=== PATIENT | female | born 2000 | race Caucasian/White ===

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

== ENCOUNTER 2021-05-11 11:10 | Emergency (ER) | payer BC, OTHER ==
[~2021-05-11] VITALS: Ht 160 cm; Wt 112.4 kg
[~2021-05-11 11:10] MED LIST changes: +ESCI10TA16 PO; -ESCI10TA2 PO; -LORA0.5T11 PO; +LORA0.5T5 PO; -OLAN15TA PO; +OLAN15TA13 PO; +OLAN1TAB16 PO; -OLAN5TAB PO; +RANI-397 PO
[2021-05-11] MEDS ORDERED: ERGO500029 (11:21)
[2021-05-11] MEDS ORDERED: LORY1TAB2 (11:21)
[2021-05-11] MEDS ORDERED: LITH300C (11:21)
[2021-05-11] MEDS ORDERED: METF500T13 (11:21)
[2021-05-11] MEDS ORDERED: ONDANSETRON 4MG/2ML VIAL IV ONE (11:50)
[2021-05-11] MEDS ORDERED: NS 1,000 ML IV ONE (11:50)
[2021-05-11] MEDS ORDERED: ONDANSETRON 4 MG ORAL DISINTEGRATING TAB PO ONE (12:30)
[2021-05-11 12:43] LABS: BASO # 0.1 10^3/uL (0.0-0.2); BASO % 0.7 % (0.0-1.0); EOS # 0.4 10^3/uL (0.0-0.5); EOS % 5.5 % (0.0-3.0); HEMATOCRIT 40.1 % (36.0-47.0); HEMOGLOBIN 12.7 g/dl (12.0-15.5); LYMPH # 2.6 10^3/uL (1.5-5.0); LYMPH % 33.4 % (24.0-44.0); MEAN CORPUSCULAR HEMOGLOBIN 27.6 pg (27.0-33.0); MEAN CORPUSCULAR HGB CONC 31.7 g/dl (32.0-36.5); MEAN CORPUSCULAR VOLUME 87.2 fl (80.0-96.0); MONO # 0.5 10^3/uL (0.0-0.8); MONO % 6.1 % (2.0-8.0); NEUTROPHILS # 4.1 10^3/uL (1.5-8.5); NEUTROPHILS % 53.9 % (36.0-66.0); PLATELET COUNT, AUTOMATED 255 10^3/uL (150-450); WHITE BLOOD COUNT 7.7 10^3/uL (4.0-10.0)
[2021-05-11 13:12] LABS: ALBUMIN 3.6 GM/DL (3.2-5.2); ALT/SGPT 29 U/L (12-78); BILIRUBIN,DIRECT 0.1 MG/DL (0.0-0.2); BILIRUBIN,TOTAL 0.4 MG/DL (0.2-1.0); BLOOD UREA NITROGEN 11 MG/DL (7-18); CALCIUM LEVEL 9.3 MG/DL (8.5-10.1); CARBON DIOXIDE LEVEL 21 MEQ/L (21-32); CHLORIDE LEVEL 110 MEQ/L (98-107); CREATININE FOR GFR 0.62 MG/DL (0.55-1.30); GLUCOSE, FASTING 92 MG/DL (70-100); LIPASE 99 U/L (73-393); POTASSIUM SERUM 4.3 MEQ/L (3.5-5.1); SODIUM LEVEL 143 MEQ/L (136-145); TOTAL PROTEIN 6.8 GM/DL (6.4-8.2)
[2021-05-11 13:25] VITALS: BP 130/80
== END 2021-05-11 13:26 | disposition home or self-care (01) ==
LOC: M ED 11:10
DX: R10.84 Generalized abdominal pain (principal); R11.2 Nausea with vomiting, unspecified; R19.7 Diarrhea, unspecified; E11.9 Type 2 diabetes mellitus without complications; K21.9 Gastro-esophageal reflux disease without esophagitis; R56.9 Unspecified convulsions; F43.10 Post-traumatic stress disorder, unspecified; F20.9 Schizophrenia, unspecified; F29 Unspecified psychosis not due to a substance or known physiological condition; F90.9 Attention-deficit hyperactivity disorder, unspecified type; F41.9 Anxiety disorder, unspecified; F31.9 Bipolar disorder, unspecified; F60.3 Borderline personality disorder; Z79.899 Other long term (current) drug therapy
CPT/HCPCS: 80048; 80076; 81001; 83690; 84702; 85025; 87086; 96374; 99283; Q0162

== ENCOUNTER 2022-03-01 13:19 | Emergency (ER) | payer OTHER ==
[~2022-03-01] VITALS: Ht 157.5 cm; Wt 109.1 kg
[~2022-03-01 13:19] MED LIST changes: +ERGO500029; +LITH300C; +LORY1TAB2; +METF500T13 PO
[2022-03-01] MEDS ORDERED: NS 1,000 ML IV SCH (13:45)
[2022-03-01] MEDS ORDERED: ACETAMINOPHEN TAB 650MG DOSE (2X325MG) PO ONE (14:05)
[2022-03-01 14:20] LABS: BASO % 0.4 % (0.0-1.0); EOS % 0.4 % (0.0-3.0); HEMATOCRIT 38.1 % (36.0-47.0); HEMOGLOBIN 12.3 g/dl (12.0-15.5); LYMPH # 0.9 10^3/uL (1.5-5.0); MEAN CORPUSCULAR HEMOGLOBIN 27.5 pg (27.0-33.0); MEAN CORPUSCULAR HGB CONC 32.3 g/dl (32.0-36.5); MONO # 0.6 10^3/uL (0.0-0.8); MONO % 11.2 % (2.0-8.0); NEUTROPHILS # 3.6 10^3/uL (1.5-8.5); NEUTROPHILS % 70.8 % (36.0-66.0); PLATELET COUNT, AUTOMATED 203 10^3/uL (150-450); RED BLOOD COUNT 4.48 10^6/uL (4.00-5.40); WHITE BLOOD COUNT 5.1 10^3/uL (4.0-10.0)
[2022-03-01 14:52] LABS: ALBUMIN 3.5 GM/DL (3.2-5.2); ALT/SGPT 57 U/L (12-78); BILIRUBIN,DIRECT 0.1 MG/DL (0.0-0.2); BILIRUBIN,TOTAL 0.5 MG/DL (0.2-1.0); BLOOD UREA NITROGEN 5 MG/DL (7-18); CALCIUM LEVEL 8.6 MG/DL (8.5-10.1); CARBON DIOXIDE LEVEL 23 MEQ/L (21-32); CHLORIDE LEVEL 109 MEQ/L (98-107); GLOMERULAR FILTRATION RATE > 60.0 (>60); GLUCOSE, FASTING 91 MG/DL (70-100); HCG, SERUM QUANTITATIVE 11749 MIU/ML; LIPASE 56 U/L (73-393); LITHIUM LEVEL < 0.20 MEQ/L (0.60-1.20); MAGNESIUM LEVEL 1.9 MG/DL (1.8-2.4); PHOSPHORUS LEVEL 2.9 MG/DL (2.5-4.9); POTASSIUM SERUM 3.5 MEQ/L (3.5-5.1); SODIUM LEVEL 140 MEQ/L (136-145); TOTAL PROTEIN 6.5 GM/DL (6.4-8.2)
[2022-03-01 16:49] VITALS: BP 142/82
[2022-03-01 17:16] LABS: APPEARANCE, URINE HAZY (CLEAR); BACTERIA, URINE AUTO 3+ (NEGATIVE); BILIRUBIN, URINE AUTO NEGATIVE (NEGATIVE); BLOOD, URINE BLOOD NEGATIVE (NEGATIVE); COLOR, URINE YELLOW (YELLOW); GLUCOSE, URINE (UA) AUTO NEGATIVE (NEGATIVE); KETONE, URINE AUTO 1+ mg/dL (NEGATIVE); LEUKOCYTE ESTERASE, URINE AUTO NEGATIVE (NEGATIVE); MUCUS, URINE SMALL (NEGATIVE); NITRITE, URINE AUTO POSITIVE (NEGATIVE); PROTEIN, URINE AUTO NEGATIVE (NEGATIVE); RBC, URINE AUTO 1 /HPF (0-3); SPECIFIC GRAVITY URINE AUTO 1.023 (1.002-1.035); SQUAMOUS EPITHELIAL CELL UR AU 6 /HPF (0-6); UROBILINOGEN, URINE AUTO 0.2 mg/dL (0.0-2.0); WBC, URINE AUTO 3 /HPF (0-3)
[2022-03-01 17:36] LABS: AMPHETAMINES LEVEL URINE NEGATIVE (NEGATIVE); BARBITURATES URINE NEGATIVE (NEGATIVE); BENZODIAZEPINES URINE NEGATIVE (NEGATIVE); CANNABINOIDS URINE NEGATIVE (NEGATIVE); COCAINE METABOLITE URINE NEGATIVE (NEGATIVE); METHADONE URINE NEGATIVE (NEGATIVE); OPIATES URINE NEGATIVE (NEGATIVE); PHENCYCLIDINE URINE NEGATIVE (NEGATIVE)
[2022-03-01] MEDS ORDERED: CEPH500C PO ×2 (18:40→19:34)
[2022-03-01] MEDS ORDERED: CEPHALEXIN 500 MG CAP PO ONE (18:45)
[2022-03-01] MEDS ORDERED: levETIRAcetam 250MG TABLET (KEPPRA) PO ONE (19:05)
[2022-03-01] MEDS ORDERED: HOME MED LIST COMPLETE! XX SCH (19:15)
[2022-03-01] MEDS ORDERED: KEPP1TAB PO (19:33)
[2022-03-01] MEDS ORDERED: NIRMATRELVIR/RITONAVIR CO-PACK (EMERGENCY USE AUTH) PO SCH ×2 (21:00)
== END 2022-03-01 19:50 | disposition home or self-care (01) ==
LOC: EDBD 13:19 → M ED 13:19
DX: G40.909 Epilepsy, unspecified, not intractable, without status epilepticus (principal); U07.1 COVID-19; N39.0 Urinary tract infection, site not specified; R94.31 Abnormal electrocardiogram [ECG] [EKG]; F43.10 Post-traumatic stress disorder, unspecified; F90.9 Attention-deficit hyperactivity disorder, unspecified type; F32.A Depression, unspecified; F41.8 Other specified anxiety disorders; Z79.899 Other long term (current) drug therapy

== ENCOUNTER 2022-04-18 21:09 | Emergency (ER) | payer OTHER ==
[~2022-04-18] VITALS: Ht 160 cm; Wt 113.6 kg
[~2022-04-18 21:09] MED LIST changes: +CEPH500C PO; +KEPP1TAB PO
[2022-04-19 01:30] VITALS: BP 130/70
== END 2022-04-19 03:10 | disposition left against medical advice (07) ==
LOC: M ED 21:09
DX: Z53.21 Procedure and treatment not carried out due to patient leaving prior to being seen by health care provider (principal)

== ENCOUNTER → 2022-04-20 | Outpatient (CLI) | payer OTHER ==
[2022-04-20 13:52] LABS: BASO % 0.3 % (0.0-1.0); EOS # 0.3 10^3/uL (0.0-0.5); EOS % 3.5 % (0.0-3.0); HEMATOCRIT 38.6 % (36.0-47.0); HEMOGLOBIN 12.3 g/dl (12.0-15.5); LYMPH # 2.4 10^3/uL (1.5-5.0); MEAN CORPUSCULAR HEMOGLOBIN 27.8 pg (27.0-33.0); MEAN CORPUSCULAR HGB CONC 31.9 g/dl (32.0-36.5); MEAN CORPUSCULAR VOLUME 87.3 fl (80.0-96.0); MONO # 0.5 10^3/uL (0.0-0.8); MONO % 5.4 % (2.0-8.0); NEUTROPHILS % 64.4 % (36.0-66.0); PLATELET COUNT, AUTOMATED 247 10^3/uL (150-450); RED BLOOD COUNT 4.42 10^6/uL (4.00-5.40); WHITE BLOOD COUNT 9.3 10^3/uL (4.0-10.0)
[2022-04-20 14:44] LABS: HEPATITIS C VIRUS ABY INDEX 0.1 INDEX (<0.8); HIV 1&2 SCREEN CENTAUR NEGATIVE (NEGATIVE)
[2022-04-20 16:05] LABS: GC DNA AMPLIFICATION NEGATIVE (NEGATIVE)
== END ==
LOC: M PLALAB 03-17 11:04
PROVIDERS: ATTEND Specialist
DX: Z34.01 Encounter for supervision of normal first pregnancy, first trimester (principal); Z3A.00 Weeks of gestation of pregnancy not specified

== ENCOUNTER → 2022-04-20 | Outpatient (CLI) | payer OTHER ==
[2022-04-20 14:11] LABS: HEMOGLOBIN A1c 5.2 %
== END ==
LOC: M PLALAB 11:26
PROVIDERS: ATTEND Advanced Practice Midwife
DX: R73.03 Prediabetes (principal)

== ENCOUNTER → 2022-05-01 | Outpatient (CLI) | payer OTHER | LOC: M PLALAB 11:00 | PROVIDERS: ATTEND Specialist | DX: Z34.82 Encounter for supervision of other normal pregnancy, second trimester (principal) ==

== ENCOUNTER → 2022-05-01 | Outpatient (CLI) | payer OTHER | LOC: M WHC 08:14 | PROVIDERS: ATTEND Specialist | DX: Z34.82 Encounter for supervision of other normal pregnancy, second trimester (principal) ==

== ENCOUNTER → 2022-07-01 | Outpatient (CLI) | payer OTHER | LOC: M WHC 07:32 | PROVIDERS: ATTEND Obstetrics & Gynecology | DX: Z34.92 Encounter for supervision of normal pregnancy, unspecified, second trimester (principal); Z3A.18 18 weeks gestation of pregnancy ==

== ENCOUNTER → 2022-07-01 | Outpatient (CLI) | payer OTHER ==
[2022-07-01 13:32] LABS: HEMATOCRIT 35.7 % (36.0-47.0); HEMOGLOBIN 11.3 g/dl (12.0-15.5); MEAN CORPUSCULAR HEMOGLOBIN 27.2 pg (27.0-33.0); MEAN CORPUSCULAR HGB CONC 31.7 g/dl (32.0-36.5); MEAN CORPUSCULAR VOLUME 85.8 fl (80.0-96.0); PLATELET COUNT, AUTOMATED 237 10^3/uL (150-450); RED BLOOD COUNT 4.16 10^6/uL (4.00-5.40)
== END ==
LOC: M PLALAB 08:41
PROVIDERS: ATTEND Obstetrics & Gynecology
DX: Z34.92 Encounter for supervision of normal pregnancy, unspecified, second trimester (principal); Z3A.23 23 weeks gestation of pregnancy

== ENCOUNTER 2022-07-06 17:25 | Outpatient (CLI) | payer OTHER ==
[~2022-07-06] VITALS: Ht 160 cm; Wt 112.3 kg
[2022-07-06 17:52] VITALS: BP 135/68
[2022-07-06] MEDS ORDERED: STUACAP PO (17:56)
[2022-07-06] MEDS ORDERED: MIDO2.5T PO (17:57)
[2022-07-06] MEDS ORDERED: HOME MED LIST COMPLETE! XX SCH (18:00)
[2022-07-06 18:53] LABS: APPEARANCE, URINE MANUAL HAZY (CLEAR); COLOR, URINE MANUAL YELLOW (YELLOW)
[2022-07-06 18:54] LABS: PROTEIN, URINE MANUAL TRACE mg/dL (NEGATIVE)
[2022-07-06 18:55] LABS: BILIRUBIN, URINE MANUAL NEGATIVE (NEGATIVE); BLOOD URINE MANUAL NEGATIVE (NEGATIVE); GLUCOSE, URINE (UA) MANUAL NEGATIVE (NEGATIVE); KETONE, URINE MANUAL 2+ mg/dL (NEGATIVE); LEUKOCYTE ESTERASE, URINE MAN POSITIVE (NEGATIVE); NITRITE, URINE MANUAL NEGATIVE (NEGATIVE); UROBILINOGEN, URINE MANUAL NORMAL (NORMAL)
[2022-07-06 19:03] LABS: BACTERIA, URINE LARGE AMOUNT; CALCIUM OXALATE CRYSTALS,URINE MOD AMOUNT /hpf; RBC, URINE 0-1 /hpf (0-3); SQUAMOUS EPITHELIAL CELL URINE LARGE AMOUNT /hpf (SMALL AMT); TRANSITIONAL EPI CELLS, URINE SMALL AMOUNT /hpf
[2022-07-06 19:04] LABS: HYALINE CAST, URINE NONE SEEN /lpf (0-1); MUCUS, URINE MOD AMOUNT (NEGATIVE)
[2022-07-06 19:39] LABS: APPEARANCE, URINE MANUAL CLEAR (CLEAR); COLOR, URINE MANUAL LT YELLOW (YELLOW)
[2022-07-06 19:40] LABS: BILIRUBIN, URINE MANUAL NEGATIVE (NEGATIVE); GLUCOSE, URINE (UA) MANUAL NEGATIVE (NEGATIVE); KETONE, URINE MANUAL 2+ mg/dL (NEGATIVE); NITRITE, URINE MANUAL NEGATIVE (NEGATIVE); PROTEIN, URINE MANUAL NEGATIVE (NEGATIVE); UROBILINOGEN, URINE MANUAL NORMAL (NORMAL)
[2022-07-06 19:41] LABS: BLOOD URINE MANUAL NEGATIVE (NEGATIVE); LEUKOCYTE ESTERASE, URINE MAN TRACE (NEGATIVE)
[2022-07-06 19:52] LABS: BACTERIA, URINE LARGE AMOUNT; MUCUS, URINE MOD AMOUNT (NEGATIVE); SQUAMOUS EPITHELIAL CELL URINE LARGE AMOUNT /hpf (SMALL AMT)
[2022-07-06 19:53] LABS: HYALINE CAST, URINE NONE SEEN /lpf (0-1)
== END 2022-07-06 19:25 | disposition home or self-care (01) ==
LOC: M LDO 17:25
PROVIDERS: ATTEND Advanced Practice Midwife
DX: O36.8129 Decreased fetal movements, second trimester, other fetus (principal); O99.212 Obesity complicating pregnancy, second trimester; E66.01 Morbid (severe) obesity due to excess calories; O99.810 Abnormal glucose complicating pregnancy; O99.352 Diseases of the nervous system complicating pregnancy, second trimester; O26.52 Maternal hypotension syndrome, second trimester; O99.342 Other mental disorders complicating pregnancy, second trimester; Z3A.24 24 weeks gestation of pregnancy
CPT/HCPCS: 59025; 81000; 87086; G0463

== ENCOUNTER → 2022-07-28 | Outpatient (CLI) | payer OTHER ==
[~2022-07-28] MED LIST changes: +MIDO2.5T PO; +STUACAP PO
== END ==
LOC: M WHC 10:55
PROVIDERS: ATTEND Advanced Practice Midwife
DX: Z34.82 Encounter for supervision of other normal pregnancy, second trimester (principal)

== ENCOUNTER → 2022-08-21 | Outpatient (CLI) | payer OTHER | LOC: M WHC 12:25 | PROVIDERS: ATTEND Advanced Practice Midwife | DX: Z34.83 Encounter for supervision of other normal pregnancy, third trimester (principal); Z3A.30 30 weeks gestation of pregnancy ==

== ENCOUNTER 2022-08-24 06:25 | Outpatient (CLI) | payer OTHER ==
[~2022-08-24] VITALS: Ht 160 cm; Wt 114.8 kg
[2022-08-24 06:46] VITALS: BP 140/87
[2022-08-24] MEDS ORDERED: KEPP1TAB PO (06:49)
[2022-08-24] MEDS ORDERED: HOME MED LIST COMPLETE! XX SCH (06:50)
== END 2022-08-24 07:30 | disposition home or self-care (01) ==
LOC: M LDO 06:25
PROVIDERS: ATTEND Specialist
DX: O26.893 Other specified pregnancy related conditions, third trimester (principal); N89.8 Other specified noninflammatory disorders of vagina; R25.2 Cramp and spasm; Z3A.31 31 weeks gestation of pregnancy
CPT/HCPCS: 59025; G0463

== ENCOUNTER 2022-09-22 02:44 | Emergency (ER) | payer OTHER ==
[~2022-09-22] VITALS: Ht 160 cm; Wt 113.6 kg
[2022-09-22] MEDS ORDERED: NS 1,000 ML IV ONE (03:00)
[2022-09-22 03:12] LABS: BASO % 0.4 % (0.0-1.0); EOS # 0.3 10^3/uL (0.0-0.5); EOS % 2.8 % (0.0-3.0); HEMATOCRIT 33.3 % (36.0-47.0); HEMOGLOBIN 10.5 g/dl (12.0-15.5); MEAN CORPUSCULAR HEMOGLOBIN 25.7 pg (27.0-33.0); MEAN CORPUSCULAR HGB CONC 31.5 g/dl (32.0-36.5); MEAN CORPUSCULAR VOLUME 81.4 fl (80.0-96.0); MONO # 0.8 10^3/uL (0.0-0.8); MONO % 7.7 % (2.0-8.0); NEUTROPHILS # 6.5 10^3/uL (1.5-8.5); NEUTROPHILS % 60.5 % (36.0-66.0); PLATELET COUNT, AUTOMATED 244 10^3/uL (150-450); RED BLOOD COUNT 4.09 10^6/uL (4.00-5.40); WHITE BLOOD COUNT 10.7 10^3/uL (4.0-10.0)
[2022-09-22 03:45] LABS: BLOOD UREA NITROGEN 9 MG/DL (9-23); CALCIUM LEVEL 8.5 MG/DL (8.5-10.1); CARBON DIOXIDE LEVEL 21 MMOL/L (20-31); CHLORIDE LEVEL 107 MMOL/L (98-107); CPK CREATINE PHOSPHOKINASE 19 U/L (34-145); CREATININE FOR GFR 0.44 MG/DL (0.55-1.30); GLOMERULAR FILTRATION RATE > 60.0 (>60); GLUCOSE, FASTING 113 MG/DL (60-100); MAGNESIUM LEVEL 1.6 MG/DL (1.8-2.4); POTASSIUM SERUM 3.9 MMOL/L (3.5-5.1); SODIUM LEVEL 139 MMOL/L (136-145)
[2022-09-22 04:02] LABS: ALBUMIN 2.8 G/DL (3.2-5.2); ALT/SGPT 16 U/L (7.0-40); BILIRUBIN,DIRECT < 0.1 MG/DL (<0.4); BILIRUBIN,TOTAL 0.3 MG/DL (0.3-1.2); LIPASE 34 U/L (12-53)
[2022-09-22] MEDS ORDERED: MAGNESIUM OXIDE 400MG TAB (MAG-OX) PO ONE (05:45)
[2022-09-22 05:58] LABS: CREATININE,RANDOM URINE 145.2 MG/DL; TOTAL PROTEIN,RANDOM URINE 37.6 MG/DL (0.0-14.0)
[2022-09-22 06:00] VITALS: BP 142/84
== END 2022-09-22 06:43 | disposition home or self-care (01) ==
LOC: EDBD 02:44 → M ED 02:44
DX: O99.353 Diseases of the nervous system complicating pregnancy, third trimester (principal); R56.9 Unspecified convulsions; Z3A.35 35 weeks gestation of pregnancy; Z79.84 Long term (current) use of oral hypoglycemic drugs; Z79.899 Other long term (current) drug therapy; Z86.69 Personal history of other diseases of the nervous system and sense organs

== ENCOUNTER → 2022-09-23 | Outpatient (REF) | payer OTHER | LOC: M PLALAB 10:46 | PROVIDERS: ATTEND Advanced Practice Midwife | DX: O13.3 Gestational [pregnancy-induced] hypertension without significant proteinuria, third trimester (principal) ==

== ENCOUNTER 2022-10-05 10:17 | Inpatient (IN) | payer OTHER ==
[~2022-10-05] VITALS: Ht 160 cm; Wt 115.6 kg
[2022-10-05] VITALS (12 sets, daily range): BP systolic 109–143; BP diastolic 57–89
[2022-10-05] MEDS ORDERED: LACTATED RINGER'S 1000 ML IV STA (11:22)
[2022-10-05] MEDS ORDERED: TRANEXAMIC ACID INJection 1,000 MG in NS 100 ML IV PRN (11:25)
[2022-10-05] MEDS ORDERED: LIDOCAINE 1% MDV 20ML VIAL INFIL PRN (11:25)
[2022-10-05] MEDS ORDERED: CARBOPROST TROMETHAMINE 250 MCG/ML AMP IM PRN (11:25)
[2022-10-05] MEDS ORDERED: OXYTOCIN INJ 10UNITS/ML 1ML VIAL IM PRN (11:25)
[2022-10-05] MEDS ORDERED: OXYTOCIN DRIP 30 UNITS in IV 1 EA IV PRN (11:25)
[2022-10-05 11:49] LABS: HEMOGLOBIN 10.5 g/dl (12.0-15.5); MEAN CORPUSCULAR HEMOGLOBIN 25.9 pg (27.0-33.0); MEAN CORPUSCULAR HGB CONC 31.8 g/dl (32.0-36.5); MEAN CORPUSCULAR VOLUME 81.5 fl (80.0-96.0); PLATELET COUNT, AUTOMATED 244 10^3/uL (150-450); RED BLOOD COUNT 4.05 10^6/uL (4.00-5.40); WHITE BLOOD COUNT 8.9 10^3/uL (4.0-10.0)
[2022-10-05 12:11] LABS: URIC ACID 3.8 MG/DL (3.1-7.8)
[2022-10-05 12:13] LABS: LDH LACTATE DEHYDROGENASE 161 U/L (120-246)
[2022-10-05 12:14] LABS: ALT/SGPT 22 U/L (7.0-40); AST/SGOT 15 U/L (<34); BILIRUBIN,TOTAL 0.3 MG/DL (0.3-1.2); CREATININE FOR GFR 0.49 MG/DL (0.55-1.30); GLOMERULAR FILTRATION RATE > 60.0 (>60)
[2022-10-05] MEDS: miSOPROStol 50MCG 1/2 TABLET PO SCH ×3 (12:39→21:18)
[2022-10-05 13:34] LABS: TOTAL PROTEIN,RANDOM URINE 36.4 MG/DL (0.0-14.0)
[2022-10-05 13:38] LABS: CREATININE,RANDOM URINE 180.8 MG/DL
[2022-10-05] MEDS: levETIRAcetam 250MG TABLET (KEPPRA) PO SCH (21:48)
[2022-10-05] MEDS: metFORMIN (GLUCOPHAGE) 500MG TAB PO SCH (21:51)
[2022-10-06] VITALS (43 sets, daily range): BP systolic 108–153; BP diastolic 55–108
[2022-10-06] MEDS: metFORMIN (GLUCOPHAGE) 500MG TAB PO SCH ×2 (08:27→18:00)
[2022-10-06] MEDS: levETIRAcetam 250MG TABLET (KEPPRA) PO SCH ×2 (09:51→20:34)
[2022-10-06] MEDS ORDERED: OXYTOCIN DRIP 30 UNITS in IV 1 EA IV SCH (11:10)
[2022-10-06] MEDS ORDERED: BUTORPHANOL 2 MG/ML 1ML VIAL IV ONE (11:20)
[2022-10-06] MEDS ORDERED: PROMETHAZINE 25MG/ML 1ML VIAL IV ONE (11:20)
[2022-10-06] MEDS: LR 1,000 ML IV SCH ×2 (17:19→22:45)
[2022-10-06] MEDS ORDERED: ePHEDrine SULFATE 25 MG/5 ML(5MG/ML) SYRINGE IVP PRN (21:35)
[2022-10-06] MEDS ORDERED: ONDANSETRON 4MG 2ML VIAL IV PRN (21:35)
[2022-10-06] MEDS ORDERED: LR 500 ML IV PRN (21:35)
[2022-10-06] MEDS ORDERED: diphenhydrAMINE 50MG/ML VIAL IV PRN (21:35)
[2022-10-06] MEDS ORDERED: EPIDURAL/PCA KEYS XX PRN (21:35)
[2022-10-06] MEDS ORDERED: NALOXONE INJ 0.4MG/1ML VIAL IV PRN (21:35)
[2022-10-06] MEDS: FENTANYL/ROPIVACAINE/NACL BAG 100 ML EPIDURAL SCH (22:18)
[2022-10-07] VITALS (40 sets, daily range): BP systolic 98–157; BP diastolic 51–86
[2022-10-07] MEDS: LR 1,000 ML IV SCH (02:46)
[2022-10-07] MEDS: FENTANYL/ROPIVACAINE/NACL BAG 100 ML EPIDURAL SCH (06:31)
[2022-10-07] MEDS: metFORMIN (GLUCOPHAGE) 500MG TAB PO SCH ×2 (07:56→19:45)
[2022-10-07] MEDS: levETIRAcetam 250MG TABLET (KEPPRA) PO SCH ×2 (08:23→21:13)
[2022-10-07] MEDS ORDERED: DOCUSATE SODIUM 100MG CAPSULE PO PRN (14:15)
[2022-10-07] MEDS ORDERED: DIBUCAINE 1% OINTMENT 30GM TOP PRN (14:15)
[2022-10-07] MEDS ORDERED: ACETAMINOPHEN TAB 650MG DOSE (2X325MG) PO PRN (14:15)
[2022-10-07] MEDS ORDERED: IBUPROFEN 600MG TAB PO PRN (14:15)
[2022-10-07] MEDS ORDERED: RHOGAM 300 MCG (1500 IU) INJ (J2790) IM SCH (14:15)
[2022-10-07] MEDS: ACETAMINOPHEN 500 MG TAB PO PRN ×2 (14:55→22:13)
[2022-10-07] MEDS: IBUPROFEN 800 MG TAB PO PRN (15:34)
[2022-10-08] MEDS: IBUPROFEN 800 MG TAB PO PRN ×2 (03:20→14:48)
[2022-10-08 06:00] VITALS: BP 118/57
[2022-10-08] MEDS: PRENATAL VITAMINS CHEWABLE TABLET PO SCH (07:43)
[2022-10-08] MEDS: metFORMIN (GLUCOPHAGE) 500MG TAB PO SCH ×2 (07:44→18:23)
[2022-10-08] MEDS: levETIRAcetam 250MG TABLET (KEPPRA) PO SCH ×2 (07:44→20:55)
[2022-10-08 18:00] VITALS: BP 115/60
[2022-10-08] MEDS: ACETAMINOPHEN 500 MG TAB PO PRN (20:58)
[2022-10-08 22:20] VITALS: BP 126/78
[2022-10-09] MEDS: IBUPROFEN 800 MG TAB PO PRN (02:04)
[2022-10-09 06:00] VITALS: BP 129/78
[2022-10-09] MEDS: PRENATAL VITAMINS CHEWABLE TABLET PO SCH (08:02)
[2022-10-09] MEDS: metFORMIN (GLUCOPHAGE) 500MG TAB PO SCH (08:02)
[2022-10-09] MEDS: levETIRAcetam 250MG TABLET (KEPPRA) PO SCH (08:02)
[2022-10-09] MEDS ORDERED: MEASLES,MUMPS,RUBELLA VACCINE INJ (MMR-II) (90707) SC.IMMUN ONE (09:00)
[2022-10-09] MEDS ORDERED: INFLUENZA QUADRIVALENT PF VACCINE 0.5ML SYRINGE IM.IMMUN ONE (09:00)
== END 2022-10-09 13:45 | disposition home or self-care (01) | DRG 560 ==
LOC: M LDI 10:17 → M OBS 10-07 16:40
PROVIDERS: ADMIT Advanced Practice Midwife; ATTEND Advanced Practice Midwife
PROC: 3E0P7GC Introduction of Other Therapeutic Substance into Female Reproductive, Via Natural or Artificial Opening (ICD-10-PCS; 2022-10-05)
PROC: 10E0XZZ Delivery of Products of Conception, External Approach (ICD-10-PCS; principal; 2022-10-07)
PROC: 10907ZC Drainage of Amniotic Fluid, Therapeutic from Products of Conception, Via Natural or Artificial Opening (ICD-10-PCS; 2022-10-07)
PROC: 0HQ9XZZ Repair Perineum Skin, External Approach (ICD-10-PCS; 2022-10-07)
DX: O13.4 Gestational [pregnancy-induced] hypertension without significant proteinuria, complicating childbirth (principal); Z3A.37 37 weeks gestation of pregnancy; Z37.0 Single live birth; O24.12 Pre-existing type 2 diabetes mellitus, in childbirth; O99.354 Diseases of the nervous system complicating childbirth; G40.909 Epilepsy, unspecified, not intractable, without status epilepticus; O76 Abnormality in fetal heart rate and rhythm complicating labor and delivery; O69.82X0 Labor and delivery complicated by other cord entanglement, without compression, not applicable or unspecified; O70.0 First degree perineal laceration during delivery; Z79.84 Long term (current) use of oral hypoglycemic drugs

== ENCOUNTER 2022-12-05 23:34 | Emergency (ER) | payer OTHER ==
[~2022-12-05] VITALS: Ht 160 cm; Wt 110.4 kg
[2022-12-05] MEDS ORDERED: LITH1TAB PO (23:47)
[2022-12-06 00:21] VITALS: BP 140/66
== END 2022-12-06 04:17 | disposition left against medical advice (07) ==
LOC: M ED 23:34 → EDBD 23:34 → M ED 12-06 04:17
DX: Z53.21 Procedure and treatment not carried out due to patient leaving prior to being seen by health care provider (principal)

== ENCOUNTER 2023-03-29 16:09 | Emergency (ER) | payer OTHER ==
[~2023-03-29] VITALS: Ht 160 cm; Wt 110.0 kg
[~2023-03-29 16:09] MED LIST changes: +LITH1TAB PO
[2023-03-29 18:15] VITALS: BP 129/63
== END 2023-03-29 18:33 | disposition home or self-care (01) ==
LOC: M ED 16:09
DX: R55 Syncope and collapse (principal); F12.10 Cannabis abuse, uncomplicated; F10.10 Alcohol abuse, uncomplicated; Z79.810 Long term (current) use of selective estrogen receptor modulators (SERMs); Z79.4 Long term (current) use of insulin; Z79.899 Other long term (current) drug therapy

== ENCOUNTER → 2023-04-14 | Outpatient (REF) | payer OTHER | LOC: M PLALAB 16:07 | PROVIDERS: ATTEND Advanced Practice Midwife | DX: Z12.4 Encounter for screening for malignant neoplasm of cervix (principal) ==

== ENCOUNTER 2023-06-24 17:47 | Emergency (ER) | payer OTHER ==
[~2023-06-24] VITALS: Ht 160 cm; Wt 116.5 kg
[2023-06-24] MEDS ORDERED: LITH300C (17:59)
[2023-06-24] MEDS ORDERED: ONDA4TAB6 PO (23:44)
[2023-06-24 23:54] VITALS: BP 137/81; TEMP 98.1; O2SAT 100
[2023-06-25] MEDS ORDERED: ACETAMINOPHEN 500 MG TAB PO ONE (00:10)
== END 2023-06-25 00:25 | disposition home or self-care (01) ==
LOC: M ED 17:47
DX: S06.0X0A Concussion without loss of consciousness, initial encounter (principal); R55 Syncope and collapse; K21.9 Gastro-esophageal reflux disease without esophagitis; F20.9 Schizophrenia, unspecified; Z79.83 Long term (current) use of bisphosphonates; Z79.810 Long term (current) use of selective estrogen receptor modulators (SERMs); Z79.899 Other long term (current) drug therapy; Y92.009 Unspecified place in unspecified non-institutional (private) residence as the place of occurrence of the external cause

== ENCOUNTER → 2023-09-14 | Outpatient (REF) | payer OTHER ==
[~2023-09-14] MED LIST changes: +ONDA4TAB6 PO
[2023-09-14 13:35] LABS: IRON (FE) 23 UG/DL (50-170); PERCENT SATURATION 5.1 % (13.2-45.0); TOTAL IRON BINDING CAPACITY 451 UG/DL (250-425)
[2023-09-14 13:39] LABS: BLOOD UREA NITROGEN 11 MG/DL (9-23); CALCIUM LEVEL 8.7 MG/DL (8.5-10.1); CARBON DIOXIDE LEVEL 22 MMOL/L (20-31); CHLORIDE LEVEL 108 MMOL/L (98-107); CHOLESTEROL LEVEL 167 MG/DL (<200); CREATININE FOR GFR 0.62 MG/DL (0.55-1.30); FERRITIN 3.1 NG/ML (7.3-270.7); GLOMERULAR FILTRATION RATE > 60.0 (>60); GLUCOSE, FASTING 105 MG/DL (60-100); HDL CHOLESTEROL 64.2 MG/DL (>40); LDL CHOLESTEROL 68.6 MG/DL (<100); NON-HDL-C 102.8 MG/DL; POTASSIUM SERUM 4.5 MMOL/L (3.5-5.1); SODIUM LEVEL 139 MMOL/L (136-145); THYROID STIMULATING HORMONE 2.315 uIU/ML (0.55-4.78); TRIGLYCERIDES LEVEL 171 MG/DL (<150)
[2023-09-14 14:13] LABS: HEMOGLOBIN A1c 5.2 % (4.0-6.0)
== END ==
LOC: M LAB REF 12:36
PROVIDERS: ATTEND Nurse Practitioner Family
DX: D64.9 Anemia, unspecified (principal); E11.9 Type 2 diabetes mellitus without complications; E66.3 Overweight; Z68.42 Body mass index [BMI] 45.0-49.9, adult; E83.42 Hypomagnesemia; E87.6 Hypokalemia

== ENCOUNTER 2023-10-22 19:54 | Emergency (ER) | payer OTHER ==
[~2023-10-22] VITALS: Ht 160 cm; Wt 114.6 kg
[2023-10-22] MEDS ORDERED: TOPI25TA10 (20:08)
[2023-10-22] MEDS ORDERED: FERR325T19 (20:08)
[2023-10-22] MEDS ORDERED: POTA-298 (20:08)
[2023-10-22] MEDS ORDERED: MAGN400C PO (20:08)
[2023-10-22 21:41] LABS: BASO # 0.1 10^3/uL (0.0-0.2); BASO % 0.5 % (0.0-1.0); EOS # 0.2 10^3/uL (0.0-0.5); EOS % 1.4 % (0.0-3.0); HEMATOCRIT 39.2 % (36.0-47.0); HEMOGLOBIN 12.5 g/dl (12.0-15.5); LYMPH # 3.1 10^3/uL (1.5-5.0); MEAN CORPUSCULAR HEMOGLOBIN 26.2 pg (27.0-33.0); MEAN CORPUSCULAR HGB CONC 31.9 g/dl (32.0-36.5); MONO # 0.6 10^3/uL (0.0-0.8); NEUTROPHILS # 6.7 10^3/uL (1.5-8.5); NEUTROPHILS % 62.8 % (36.0-66.0); PLATELET COUNT, AUTOMATED 266 10^3/uL (150-450); RED BLOOD COUNT 4.78 10^6/uL (4.00-5.40); WHITE BLOOD COUNT 10.6 10^3/uL (4.0-10.0)
[2023-10-22 22:03] LABS: MAGNESIUM LEVEL 1.9 MG/DL (1.8-2.4)
[2023-10-22 22:04] LABS: HCG, SERUM QUANTITATIVE < 2.6 MIU/ML (<4.2)
[2023-10-22 22:06] LABS: LITHIUM LEVEL < 0.10 MMOL/L (1.0-1.20)
[2023-10-22 22:11] LABS: CPK CREATINE PHOSPHOKINASE 64 U/L (34-145)
[2023-10-22 23:45] VITALS: BP 133/74; TEMP 98.6; O2SAT 100
== END 2023-10-23 00:21 | disposition home or self-care (01) ==
LOC: M ED 19:54
DX: R06.02 Shortness of breath (principal); W19.XXXA Unspecified fall, initial encounter; F20.9 Schizophrenia, unspecified; F43.10 Post-traumatic stress disorder, unspecified; Y92.009 Unspecified place in unspecified non-institutional (private) residence as the place of occurrence of the external cause; Y93.89 Activity, other specified; Y99.9 Unspecified external cause status; Z79.810 Long term (current) use of selective estrogen receptor modulators (SERMs); Z79.899 Other long term (current) drug therapy

== ENCOUNTER 2023-11-14 17:48 | Emergency (ER) | payer OTHER ==
[~2023-11-14] VITALS: Ht 160 cm; Wt 117.4 kg
[~2023-11-14 17:48] MED LIST changes: +FERR325T19; +MAGN400C PO; +POTA-298; +TOPI25TA10
[2023-11-14 17:50] VITALS: BP 134/73; TEMP 97; O2SAT 100
[2023-11-14 18:33] LABS: BASO % 0.5 % (0.0-1.0); EOS # 0.3 10^3/uL (0.0-0.5); EOS % 3.4 % (0.0-3.0); HEMATOCRIT 39.9 % (36.0-47.0); HEMOGLOBIN 12.8 g/dl (12.0-15.5); LYMPH # 3.1 10^3/uL (1.5-5.0); LYMPH % 37.4 % (24.0-44.0); MEAN CORPUSCULAR HEMOGLOBIN 26.6 pg (27.0-33.0); MEAN CORPUSCULAR HGB CONC 32.1 g/dl (32.0-36.5); MEAN CORPUSCULAR VOLUME 82.8 fl (80.0-96.0); MONO # 0.4 10^3/uL (0.0-0.8); MONO % 5.3 % (2.0-8.0); NEUTROPHILS # 4.4 10^3/uL (1.5-8.5); NEUTROPHILS % 53.2 % (36.0-66.0); PLATELET COUNT, AUTOMATED 271 10^3/uL (150-450); RED BLOOD COUNT 4.82 10^6/uL (4.00-5.40); WHITE BLOOD COUNT 8.3 10^3/uL (4.0-10.0)
[2023-11-14 18:54] LABS: HCG, SERUM QUANTITATIVE < 2.6 MIU/ML (<4.2)
[2023-11-14 18:55] LABS: BLOOD UREA NITROGEN 11 MG/DL (9-23); CALCIUM LEVEL 8.9 MG/DL (8.5-10.1); CARBON DIOXIDE LEVEL 21 MMOL/L (20-31); CHLORIDE LEVEL 110 MMOL/L (98-107); CREATININE FOR GFR 0.68 MG/DL (0.55-1.30); GLOMERULAR FILTRATION RATE > 60.0 (>60); GLUCOSE, FASTING 97 MG/DL (60-100); POTASSIUM SERUM 3.9 MMOL/L (3.5-5.1); SODIUM LEVEL 139 MMOL/L (136-145)
== END 2023-11-14 19:26 | disposition home or self-care (01) ==
LOC: M ED 17:48
DX: N93.9 Abnormal uterine and vaginal bleeding, unspecified (principal); D64.9 Anemia, unspecified; E28.2 Polycystic ovarian syndrome; F10.10 Alcohol abuse, uncomplicated; Z79.82 Long term (current) use of aspirin; Z79.899 Other long term (current) drug therapy

== ENCOUNTER → 2024-02-17 | Outpatient (REF) | payer OTHER, MEDICAID ==
[2024-02-17 17:59] LABS: BLOOD UREA NITROGEN 12 MG/DL (9-23); CALCIUM LEVEL 9.3 MG/DL (8.5-10.1); CARBON DIOXIDE LEVEL 24 MMOL/L (20-31); CHLORIDE LEVEL 106 MMOL/L (98-107); CREATININE FOR GFR 0.59 MG/DL (0.55-1.30); GLOMERULAR FILTRATION RATE > 60.0 (>60); GLUCOSE, FASTING 105 MG/DL (60-100); IRON (FE) 47 UG/DL (50-170); PERCENT SATURATION 13.1 % (13.2-45.0); POTASSIUM SERUM 4.3 MMOL/L (3.5-5.1); SODIUM LEVEL 140 MMOL/L (136-145); TOTAL IRON BINDING CAPACITY 358 UG/DL (250-425)
[2024-02-17 18:00] LABS: RHEUMATOID FACTOR QUANT < 3.5 IU/ML (<14)
[2024-02-17 18:01] LABS: FERRITIN 16.4 NG/ML (7.3-270.7)
== END ==
LOC: M LAB REF 16:30
PROVIDERS: ATTEND Nurse Practitioner Family
DX: E87.6 Hypokalemia (principal); E61.1 Iron deficiency; R69 Illness, unspecified

== ENCOUNTER 2024-08-19 16:05 | Emergency (ER) | payer MEDICAID, OTHER ==
[~2024-08-19] VITALS: Ht 160 cm; Wt 113.6 kg
[~2024-08-19 16:05] MED LIST changes: -OLAN15TA13 PO; +OLAN15TA69 PO; +ONDA-282 PO; -ONDA4TAB6 PO
[2024-08-19 16:44] LABS: BASO # 0.1 10^3/uL (0.0-0.2); BASO % 0.4 % (0.0-1.0); EOS # 0.2 10^3/uL (0.0-0.5); EOS % 1.7 % (0.0-3.0); HEMATOCRIT 41.7 % (36.0-47.0); LYMPH # 3.4 10^3/uL (1.5-5.0); LYMPH % 29.3 % (24.0-44.0); MEAN CORPUSCULAR HEMOGLOBIN 26.3 pg (27.0-33.0); MEAN CORPUSCULAR HGB CONC 31.2 g/dl (32.0-36.5); MEAN CORPUSCULAR VOLUME 84.4 fl (80.0-96.0); MONO # 0.6 10^3/uL (0.0-0.8); MONO % 5.1 % (2.0-8.0); NEUTROPHILS # 7.2 10^3/uL (1.5-8.5); NEUTROPHILS % 63.2 % (36.0-66.0); PLATELET COUNT, AUTOMATED 271 10^3/uL (150-450); RED BLOOD COUNT 4.94 10^6/uL (4.00-5.40); WHITE BLOOD COUNT 11.5 10^3/uL (4.0-10.0)
[2024-08-19 17:00] LABS: ALBUMIN 3.6 G/DL (3.2-5.2); ALKALINE PHOSPHATASE 42 U/L (46-116); ALT/SGPT 63 U/L (7.0-40); AST/SGOT 27 U/L (<34); BILIRUBIN,DIRECT 0.1 MG/DL (<0.4); BILIRUBIN,TOTAL 0.4 MG/DL (0.3-1.2); BLOOD UREA NITROGEN 8 MG/DL (9-23); CALCIUM LEVEL 9.5 MG/DL (8.5-10.1); CARBON DIOXIDE LEVEL 20 MMOL/L (20-31); CHLORIDE LEVEL 111 MMOL/L (98-107); CREATININE FOR GFR 0.61 MG/DL (0.55-1.30); GLOMERULAR FILTRATION RATE > 60.0 (>60); GLUCOSE, FASTING 90 MG/DL (60-100); POTASSIUM SERUM 4.1 MMOL/L (3.5-5.1); SODIUM LEVEL 139 MMOL/L (136-145); TOTAL PROTEIN 6.9 G/DL (5.7-8.2)
[2024-08-19] MEDS: levETIRAcetam INJection 1,000 MG in D5W 100 ML IV ONE (17:18)
[2024-08-19 18:02] LABS: ETHYL ALCOHOL (ETHANOL) < 0.003 % (0.000-0.010)
[2024-08-19 18:07] LABS: BARBITURATES URINE NEGATIVE (NEGATIVE); BENZODIAZEPINES URINE NEGATIVE (NEGATIVE); CANNABINOIDS URINE NEGATIVE (NEGATIVE); COCAINE METABOLITE URINE NEGATIVE (NEGATIVE); METHADONE URINE NEGATIVE (NEGATIVE); OPIATES URINE NEGATIVE (NEGATIVE); PHENCYCLIDINE URINE NEGATIVE (NEGATIVE)
[2024-08-19 18:08] LABS: AMPHETAMINES LEVEL URINE POSITIVE (NEGATIVE)
[2024-08-19 18:45] VITALS: BP 146/83
[2024-08-19 18:50] VITALS: TEMP 98.4; O2SAT 99
[2024-08-19] MEDS ORDERED: LEVE750XR PO (18:54)
== END 2024-08-19 19:15 | disposition home or self-care (01) ==
LOC: M ED 16:05 → EDBD 16:05 → M ED 19:15
DX: G40.909 Epilepsy, unspecified, not intractable, without status epilepticus (principal); F32.A Depression, unspecified; F43.10 Post-traumatic stress disorder, unspecified; F20.9 Schizophrenia, unspecified; Z79.899 Other long term (current) drug therapy
CPT/HCPCS: 80048; 80076; 80307; 82077; 83605; 85025; 93041; 94760; 96365; 99285; J1953

== ENCOUNTER 2024-12-01 03:27 | Emergency (ER) | payer OTHER ==
[~2024-12-01] VITALS: Ht 160 cm; Wt 115.0 kg
[~2024-12-01 03:27] MED LIST changes: +LEVE750XR PO; -MIDO2.5T PO; +MIDO2.5T3 PO
[2024-12-01 04:45] LABS: BASO # 0.1 10^3/uL (0.0-0.2); BASO % 0.5 % (0.0-1.0); EOS # 0.3 10^3/uL (0.0-0.5); HEMATOCRIT 39.2 % (36.0-47.0); LYMPH % 30.3 % (24.0-44.0); MEAN CORPUSCULAR HEMOGLOBIN 27.8 pg (27.0-33.0); MEAN CORPUSCULAR HGB CONC 33.2 g/dl (32.0-36.5); MEAN CORPUSCULAR VOLUME 83.9 fl (80.0-96.0); MONO # 0.7 10^3/uL (0.0-0.8); MONO % 5.6 % (2.0-8.0); NEUTROPHILS # 8.1 10^3/uL (1.5-8.5); NEUTROPHILS % 61.3 % (36.0-66.0); PLATELET COUNT, AUTOMATED 284 10^3/uL (150-450); RED BLOOD COUNT 4.67 10^6/uL (4.00-5.40); WHITE BLOOD COUNT 13.3 10^3/uL (4.0-10.0)
[2024-12-01 05:07] LABS: BLOOD UREA NITROGEN 9 MG/DL (9-23); CALCIUM LEVEL 9.1 MG/DL (8.5-10.1); CARBON DIOXIDE LEVEL 23 MMOL/L (20-31); CHLORIDE LEVEL 105 MMOL/L (98-107); CREATININE FOR GFR 0.64 MG/DL (0.55-1.30); GLOMERULAR FILTRATION RATE > 60.0 (>60); GLUCOSE, FASTING 105 MG/DL (60-100); POTASSIUM SERUM 3.7 MMOL/L (3.5-5.1); SODIUM LEVEL 142 MMOL/L (136-145)
[2024-12-01] MEDS: NS (Normal Saline) 0.9% 1,000 ML IV ONE ×2 (07:14→09:45)
[2024-12-01 11:44] VITALS: BP 134/75; TEMP 97.9; O2SAT 100
== END 2024-12-01 11:45 | disposition home or self-care (01) ==
LOC: EDBD 03:27 → M ED 03:27
DX: R55 Syncope and collapse (principal); R19.7 Diarrhea, unspecified; R11.10 Vomiting, unspecified; F41.9 Anxiety disorder, unspecified; F32.A Depression, unspecified; F43.10 Post-traumatic stress disorder, unspecified; G90.A Postural orthostatic tachycardia syndrome [POTS]; Z79.899 Other long term (current) drug therapy

== ENCOUNTER → 2025-02-22 | Outpatient (REF) | payer OTHER, MEDICAID ==
[~2025-02-22] MED LIST changes: +TOPI-256; -TOPI25TA10
[2025-02-22 18:43] LABS: HEMOGLOBIN A1c 5.2 % (4.0-6.0)
[2025-02-22 19:38] LABS: MONO REFLEX EBV COMP NEGATIVE (NEGATIVE)
== END ==
LOC: M LAB REF 16:35
PROVIDERS: ATTEND Nurse Practitioner Family
DX: R53.83 Other fatigue (principal); E66.01 Morbid (severe) obesity due to excess calories

== ENCOUNTER → 2025-03-01 | Outpatient (CLI) | payer OTHER, MEDICAID | LOC: M RAD 13:13 | PROVIDERS: ATTEND Nurse Practitioner Family | DX: R79.89 Other specified abnormal findings of blood chemistry (principal); R59.0 Localized enlarged lymph nodes ==

== ENCOUNTER → 2025-05-07 | Outpatient (REF) | payer OTHER ==
[~2025-05-07] MED LIST changes: +DOXY100T PO; +FLUTISP NARES; +LEVOTAB18 PO; +LISD40CA PO; +LITH300T PO; +PROP20TA72 PO
[2025-05-07 19:07] LABS: ALT/SGPT 27 U/L (7.0-40); AST/SGOT 20 U/L (<34); CALCIUM LEVEL 10.1 MG/DL (8.5-10.1); CARBON DIOXIDE LEVEL 22 MMOL/L (20-31); CHLORIDE LEVEL 106 MMOL/L (98-107); CREATININE FOR GFR 0.66 MG/DL (0.55-1.30); GLOMERULAR FILTRATION RATE > 90.0 (>60); POTASSIUM SERUM 4.3 MMOL/L (3.5-5.1); SODIUM LEVEL 142 MMOL/L (136-145)
== END ==
LOC: M LAB REF 17:23
PROVIDERS: ATTEND Nurse Practitioner Family
DX: G90.A Postural orthostatic tachycardia syndrome [POTS] (principal); R53.82 Chronic fatigue, unspecified

== ENCOUNTER → 2025-07-05 | Outpatient (CLI) | payer OTHER ==
[2025-07-09 15:57] LABS: LYME TOTAL ANTIBODY CIA 2.83 Index (<=0.90)
[2025-07-09 17:47] LABS: LYME AB IGG BY CIA 3.14 Index (<=0.90); LYME AB IGM BY CIA <= 0.90 Index (<=0.90)
== END ==
LOC: M WUC 12:28
PROVIDERS: ATTEND Nurse Practitioner Family
DX: R53.82 Chronic fatigue, unspecified (principal)

== ENCOUNTER → 2025-07-26 | Outpatient (CLI) | payer OTHER | LOC: M RAD 09:28 | PROVIDERS: ATTEND Nurse Practitioner Family | DX: D18.03 Hemangioma of intra-abdominal structures (principal) ==

== ENCOUNTER 2025-09-11 05:54 | Emergency (ER) | payer OTHER ==
[~2025-09-11] VITALS: Ht 160 cm; Wt 104.5 kg
[2025-09-11 07:48] VITALS: BP 142/85; TEMP 97.9; O2SAT 98
[2025-09-11] MEDS ORDERED: NS (Normal Saline) 0.9% 1,000 ML IV ONE (09:30)
== END 2025-09-11 09:35 | disposition left against medical advice (07) ==
LOC: M ED 05:54
DX: G90.A Postural orthostatic tachycardia syndrome [POTS] (principal); D50.9 Iron deficiency anemia, unspecified; G40.909 Epilepsy, unspecified, not intractable, without status epilepticus; I10 Essential (primary) hypertension; Z79.899 Other long term (current) drug therapy; Z53.9 Procedure and treatment not carried out, unspecified reason